=== PATIENT | female | born 1990 | race African-American/Black ===

== ENCOUNTER 2017-02-16 11:15 | Emergency (ER) | payer MEDICAID ==
[~2017-02-16] VITALS: Ht 162.6 cm; Wt 106.0 kg
[~2017-02-16 11:15] MED LIST: VERA-3
[2017-02-16] MEDS ORDERED: METF10002 PO (11:55)
[2017-02-16] MEDS ORDERED: KETOROLAC 60MG/2ML VIAL IM ONE (13:15)
[2017-02-16 13:58] VITALS: BP 150/102
== END 2017-02-16 14:05 | disposition home or self-care (01) ==
LOC: ER 12:01
DX: M25.512 Pain in left shoulder (principal); M25.511 Pain in right shoulder; R03.0 Elevated blood-pressure reading, without diagnosis of hypertension; E11.9 Type 2 diabetes mellitus without complications; V49.49XA Driver injured in collision with other motor vehicles in traffic accident, initial encounter; Y93.89 Activity, other specified; Y92.410 Unspecified street and highway as the place of occurrence of the external cause
CPT/HCPCS: 71010; 73030; 81025; 96372; 99284; J1885

== ENCOUNTER 2017-03-17 15:19 | Emergency (ER) | payer MEDICAID ==
[~2017-03-17] VITALS: Ht 162.6 cm; Wt 103.0 kg
[~2017-03-17 15:19] MED LIST changes: +METF10002 PO
[2017-03-17] MEDS ORDERED: ONDANSETRON 4MG ODT PO ONE (23:15)
[2017-03-17] MEDS ORDERED: HYDROCODONE/APAP 7.5/325MG 1 TAB TABLET PO ONE (23:15)
[2017-03-18 00:22] VITALS: BP 130/72
== END 2017-03-18 00:25 | disposition home or self-care (01) ==
LOC: ER 16:49
DX: M25.511 Pain in right shoulder (principal); E11.9 Type 2 diabetes mellitus without complications; R20.0 Anesthesia of skin
CPT/HCPCS: 81025; 99283; Q0162; Z7610